=== PATIENT | male | born 1995 | race American Indian/Alaskan Native ===

== ENCOUNTER 2020-07-23 02:48 | Emergency (ER) | payer SELFPAY ==
[2020-07-23 03:04] VITALS: BP 112/80
--- NOTE | 2020-07-23 03:34 | XRay Report ---
RIGHT HAND 3 VIEWS INDICATION / CLINICAL INFORMATION: right hand pain COMPARISON: None available. FINDINGS: BONES / JOINT(S): Mildly comminuted fracture midshaft fifth metacarpal with mild anterior angulation. No additional fracture. No significant arthritis. SOFT TISSUES: No significant abnormality. ADDITIONAL FINDINGS: None. Signer Name: Michael Buenrostro MD Signed: 07/23/2020 3:29 AM Workstation Name: [id number]
[2020-07-23] MEDS ORDERED: HYDROcodone/ACETAMINOPHEN 7.5-325MG TAB PO ONE (03:42)
[2020-07-23] MEDS ORDERED: IBUPROFEN 600 MG TAB PO ONE (03:42)
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
== END 2020-07-23 05:00 | disposition home or self-care (01) ==
LOC: ED 02:48
DX: S62.626A Displaced fracture of middle phalanx of right little finger, initial encounter for closed fracture (principal); F12.10 Cannabis abuse, uncomplicated; Z79.899 Other long term (current) drug therapy; W22.8XXA Striking against or struck by other objects, initial encounter; Y93.89 Activity, other specified; Y92.89 Other specified places as the place of occurrence of the external cause; Y99.8 Other external cause status
CPT/HCPCS: 99283